=== PATIENT | male | born 1960 | race Two or more races ===

== ENCOUNTER 2023-12-29 18:31 | Emergency (ER) | payer SELFPAY ==
[~2023-12-29] VITALS: Ht 170.2 cm; Wt 83.5 kg
[2023-12-29] MEDS: SODIUM CHLORIDE 0.9% 1,000 ML IV ONE (19:00)
[2023-12-29 19:23] LABS: Basophils # (auto) 0.2 10 ^3/uL (0-0.2); Basophils % (auto) 1.1 % (0.0-2.0); Eosinophils # (auto) 0.3 10 ^3/uL (0-0.8); Eosinophils % (auto) 2.4 % (0.0-7.0); Hematocrit 37.3 % (41.0-53.0); Hemoglobin 12.5 g/dL (13.5-17.5); Mean Corpuscular Hgb Conc. 33.4 g/dL (32.0-36.0); Mean Corpuscular Volume 89.9 fL (80.0-100.0); Monocytes % (auto) 6.7 % (0.0-12.0); Neutrophils # (auto) 10.9 10 ^3/uL (1.6-8.6); Neutrophils % (auto) 75.8 % (37.0-80.0); Red Blood Cells 4.15 10^6/uL (4.5-5.90); Red Cell Distribution Width 15.5 % (11.8-14.3); White Blood Cell 14.4 10^3/uL (4.4-10.8)
[2023-12-29 19:41] LABS: Albumin 4.5 g/dL (3.2-4.8); Alkaline Phosphatase 159 U/L (46-116); Anion Gap 9 (5-15); Aspartate Aminotransferase 13 U/L (13-40); BUN/Creatinine Ratio 13.9 (10.0-20.0); Blood Urea Nitrogen 33 mg/dL (9-23); Calcium 9.9 mg/dL (8.5-10.1); Carbon Dioxide 27 mmol/L (20-30); Chloride 100 mmol/L (98-107); Glucose 115 mg/dL (74-106); Sodium 136 mmol/L (136-145)
[2023-12-29 19:42] LABS: Bilirubin, Total 0.6 mg/dL (0.2-1.0); Total Protein 8.1 g/dL (5.7-8.2)
[2023-12-29 19:44] LABS: Urine Bacteria None Seen /hpf (None Seen)
[2023-12-29] MEDS: KETOROLAC TROMETH 30 MG/ML 1ML VIAL IV ONE (19:52)
[2023-12-29] MEDS: ONDANSETRON HCL 4 MG/2 ML VIAL IV ONE (19:52)
[2023-12-29] MEDS: MORPHINE SULFATE 4 MG/ML SYR/VIAL IV ONE (19:53)
[2023-12-29 19:54] LABS: Alanine Aminotransferase < 9 U/L (7-40)
[2023-12-29 20:03] VITALS: TEMP 98.2
[2023-12-29 20:04] VITALS: O2SAT 93
[2023-12-29 20:07] LABS: Urine Blood 2+ /uL (Negative); Urine Clarity Clear (Clear); Urine Color Light-Yellow (Yellow); Urine Protein, UAD 1+ (Negative); Urine Specific Gravity 1.015 (1.001-1.035); Urine Urobilinogen Normal (Negative); Urine WBC 4 /hpf (0 - 3); Urine pH 5.5 (5.0-9.0)
[2023-12-29 20:28] VITALS: BP 172/90; PULSE 86; RESP 16
[2023-12-29] MEDS ORDERED: DOCUSATE SOD 100 MG CAP PO PRN (21:45)
[2023-12-29] MEDS ORDERED: MORPHINE SULFATE INJ 2 MG/ml SYRG IV PRN (21:45)
[2023-12-29] MEDS ORDERED: ONDANSETRON HCL 4 MG/2 ML VIAL IV PRN (21:45)
[2023-12-29] MEDS ORDERED: cefTRIAXone 1GM/50ML D5W 50 ML IV ONE (21:45)
[2023-12-29] MEDS ORDERED: ACETAMINOPHEN 325 MG TAB PO PRN (21:45)
[2023-12-29] MEDS ORDERED: HYDROcodone-ACET 5/325MG TAB PO PRN (21:45)
[2023-12-29] MEDS ORDERED: hydrALAZINE HCL 20 MG/ML VL IV PRN (21:45)
[2023-12-29] MEDS ORDERED: DEXTROSE (50%) 50ML SYRG IV PRN (21:45)
[2023-12-29] MEDS ORDERED: ACCU-CHEK COMFORT CURVE STRIP VI SCH (22:00)
[2023-12-29] MEDS ORDERED: SODIUM CHLOR 0.9% PF (SALINE LOCK) 10ML VIAL/SYR IV SCH (22:00)
[2023-12-29] MEDS ORDERED: METOPROLOL TARTRATE 50 MG TAB PO SCH (22:00)
[2023-12-29] MEDS ORDERED: InsuLIN REG 1unit/0.01ml Soln (100units/ml) SC SCH (22:00)
[2023-12-30] MEDS ORDERED: InsuLIN REG 1unit/0.01ml Soln (100units/ml) SC SCH (07:00)
[2023-12-30] MEDS ORDERED: cefTRIAXone 1GM/50ML D5W 50 ML IV SCH (09:00)
[2023-12-30] MEDS ORDERED: amLODIPine BESYLATE 5 MG TAB PO SCH (10:00)
== END 2023-12-29 23:28 | disposition left against medical advice (07) ==
LOC: ER 18:31
DX: N13.2 Hydronephrosis with renal and ureteral calculous obstruction (principal); I31.39 Other pericardial effusion (noninflammatory); J90 Pleural effusion, not elsewhere classified; I10 Essential (primary) hypertension; E11.9 Type 2 diabetes mellitus without complications
CPT/HCPCS: 36415; 71045; 74176; 80053; 81001; 83690; 84484; 85025; 96361; 96374; 96375; 99285; J1885; J2270; J2405; J7030